=== PATIENT | female | born 1995 | race African-American/Black ===

== ENCOUNTER 2016-12-09 23:05 | Emergency (ER) | payer SELFPAY ==
[2016-12-10] MEDS ORDERED: HYDROCODONE/ACETAMINOPHEN 5-325 MG 6 TAB/DSPK PO PRN (02:16)
--- NOTE | 2016-12-10 02:16 | ER Document Report ---
ED General - General Chief Complaint: Chest Wall Pain Stated Complaint: CHEST PAIN TRAVEL OUTSIDE OF THE [place] IN LAST 30 DAYS: No - Related Data Allergies/Adverse Reactions: No Known Allergies Allergy (Verified 05/21/16 19:36) Past Medical History - Social History Smoking Status: Unknown if Ever Smoked Family History: Reviewed & Not Pertinent Patient has suicidal ideation: No Patient has homicidal ideation: No Renal/ Medical History: Denies: Hx Peritoneal Dialysis Physical Exam - Vital signs Vitals: Temp Pulse Resp BP Pulse Ox 97.7 F 91 16 109/65 99 12/09/16 23:14 12/09/16 23:14 12/09/16 23:14 12/09/16 23:14 12/09/16 23:14 Course - Vital Signs Vital signs: Temp Pulse Resp BP Pulse Ox 97.7 F 91 16 109/65 99 12/09/16 23:14 12/09/16 23:14 12/09/16 23:14 12/09/16 23:14 12/09/16 23:14 Discharge - Discharge Clinical Impression: Chest wall pain Condition: Stable Disposition: HOME, SELF-CARE Instructions: Chest Wall Pain ([facility]) Prescriptions: Tramadol HCl [Ultram 50 mg Tablet] 50 mg PO ASDIR PRN #20 tablet PRN Reason: Forms: Return to Work
--- NOTE | 2016-12-10 02:23 | ER Document Report ---
ED General - General Mode of Arrival: Ambulatory Information source: Patient TRAVEL OUTSIDE OF THE [place] IN LAST 30 DAYS: No - HPI Onset: Last week Onset/Duration: Persistent Quality of pain: Achy Severity: None Associated symptoms: None - General Chief Complaint: Chest Wall Pain Stated Complaint: CHEST PAIN Notes: Patient is a 21-year-old female that presents to the emergency department today with complaints of right-sided chest wall pain. Patient states one week ago she was attempting to move a table that was stacked on top of another table and she somehow managed to hit herself in the chest with the table. Patient states she has had pain since this accident in the same location that was hit with the table. Patient denies any shortness of breath. (MICHELLE PHAN) - Related Data Allergies/Adverse Reactions: No Known Allergies Allergy (Verified 12/10/16 02:44) Past Medical History - General Information source: Patient - Social History Smoking Status: Never Smoker Cigarette use (# per day): No Frequency of alcohol use: None Drug Abuse: None Lives with: Family Family History: Reviewed & Not Pertinent Patient has suicidal ideation: No Patient has homicidal ideation: No Pulmonary Medical History: Reports: Hx Asthma Surgical Hx: Negative Review of Systems - Review of Systems Constitutional: No symptoms reported EENT: No symptoms reported Cardiovascular: No symptoms reported Respiratory: See HPI, Other - right sided chest wall pain. denies: Short of breath Gastrointestinal: No symptoms reported Genitourinary: No symptoms reported Female Genitourinary: No symptoms reported Musculoskeletal: No symptoms reported Skin: No symptoms reported Hematologic/Lymphatic: No symptoms reported Neurological/Psychological: No symptoms reported -: Yes All other systems reviewed and negative Physical Exam - Vital signs Vitals: Temp Pulse Resp BP Pulse Ox 97.7 F 91 16 109/65 99 12/09/16 23:14 12/09/16 23:14 12/09/16 23:14 12/09/16 23:14 12/09/16 23:14 (MICHELLE PHAN) (JONNY MCKEON) - Notes Notes: Physical Exam: General: Alert, appears well. HEENT: Normocephalic. Atraumatic. PERRL. Extraocular movements intact. Oropharynx clear. Neck: Supple. Respiratory: No respiratory distress. Clear and equal breath sounds bilaterally. Right anterior chest wall tenderness to palpation, reproducible chest pain. Abdominal: Normal Inspection. No distension. Extremities: Moves all four extremities. Neurological: Normal cognition. AAOx4. Normal speech. Psychological: Normal affect. Normal Mood. Skin: Warm. Dry. Normal color. (MICHELLE PHAN) Course - Re-evaluation Re-evalutation: 12/10/16 Patient with reproducible chest wall tenderness to palpation. Take over-the- counter medications as needed. Lungs are clear. Vitals are stable. Follow-up with PMD as needed. No other complaints. (JONNY MCKEON) - Vital Signs Vital signs: Temp Pulse Resp BP Pulse Ox 98.4 F 78 14 111/67 97 12/10/16 02:38 12/10/16 02:38 12/10/16 02:38 12/10/16 02:38 12/10/16 02:38 (MICHELLE PHAN) (JONNY MCKEON) Discharge - Discharge Clinical Impression: Chest wall pain Condition: Stable Disposition: HOME, SELF-CARE Instructions: Chest Wall Pain ([facility]) Prescriptions: Naproxen Sodium [Aleve] 220 mg PO BIDP PRN 20 Days PRN Reason: Forms: Return to Work Scribe Attestation: 12/10/16 04:44 I personally performed the services described in the documentation, reviewed and edited the documentation which was dictated to the scribe in my presence, and it accurately records my words and actions. (JONNY MCKEON) Scribe Documentation - Scribe Written by Scribe:: Shukri Rangel, [id number] 12/10/2016 acting as scribe for :: Faheem
[2016-12-10 02:45] VITALS: BP 111/67
== END 2016-12-10 02:45 | disposition home or self-care (01) ==
LOC: ER 23:05
DX: R07.89 Other chest pain (principal); W22.8XXA Striking against or struck by other objects, initial encounter; Y93.89 Activity, other specified; J45.909 Unspecified asthma, uncomplicated
CPT/HCPCS: 99283